=== PATIENT | female | born 1995 | race Caucasian/White ===

== ENCOUNTER 2017-02-27 16:11 | Emergency (ER) | payer SELFPAY ==
[2017-02-27 16:38] VITALS: BP 128/84
--- NOTE | 2017-02-27 16:47 | UC ---
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 - History of Current Complaint Chief Complaint: UCBackPain Stated Complaint: BACK INJURY Time Seen by Provider: 02/27/17 16:27 Hx Obtained From: Patient Hx Last Menstrual Period: unknown, on depo shot Onset/Duration: Sudden Onset Timing: Constant Severity Initially: Severe Severity Currently: Severe Pain Scale Used: 0-10 Numeric - 7 Character: Sharp Aggravating: Movement - Allergies/Home Medications Allergies/Adverse Reactions: Allergies Allergy/AdvReac Type Severity Reaction Status Date / Time No Known Allergies Allergy Verified 02/27/17 16:38 Home Medications: Home Medications medroxyPROGESTERone ACETATE* [DEPO-Provera*] 150 mg IM ONCE 02/27/17 [History Confirmed 02/27/17] PMH/Surg Hx/FS Hx/Imm Hx Previously Healthy: Yes - Surgical History Surgical History: None - Social History Alcohol Use: None Substance Use Type: None Smoking Status (MU): Heavy Every Day Tobacco Smoker Type: Cigarettes Amount Used/How Often: 1/2ppd - Immunization History Vaccination Up to Date: Yes Review of Systems Constitutional: Negative Skin: Negative Eyes: Negative ENT: Negative Respiratory: Negative Cardiovascular: Negative Gastrointestinal: Negative Genitourinary: Negative Motor: Negative Neurovascular: Negative Musculoskeletal: Myalgia, Other: - RIGHT LOWER BACK SPASM/PAIN Neurological: Negative Psychological: Negative All Other Systems Reviewed And Are Negative: Yes Physical Exam Triage Information Reviewed: Yes Vital Signs: Initial Vital Signs Temp 37.1 C 02/27/17 16:31 Pulse 96 02/27/17 16:31 Resp 16 02/27/17 16:31 BP 128/84 02/27/17 16:31 Pulse Ox 100 02/27/17 16:31 Eye Exam: Normal ENT Exam: Normal Dental Exam: Normal Neck exam: Normal Neck: Positive: 1 Respiratory Exam: Normal Cardiovascular Exam: Normal Abdominal Exam: Normal Musculoskeletal: Positive: Other: - RIGHT LOWER BACK SPASM Neurological Exam: Normal Psychological Exam: Normal Skin Exam: Normal Back Pain Course/Dx - Differential Dx/Diagnosis Provider Diagnoses: RIGHT LOWER BACK SPASM Discharge - Discharge Plan Condition: Stable Disposition: HOME Prescriptions: Meloxicam [Mobic] 7.5 mg PO BID PC #30 tab Methocarbamol TAB* [Robaxin 500 MG TAB*] 500 mg PO TID PRN #30 tab PRN Reason: Spasms Patient Education Materials: Low Back Strain (ED) Referrals: Michelet Umaña MD [Primary Care Provider] -
== END 2017-02-27 16:59 | disposition home or self-care (01) ==
LOC: UCCORT 16:11
DX: M62.830 Muscle spasm of back (principal); F17.210 Nicotine dependence, cigarettes, uncomplicated
CPT/HCPCS: 99212; G0463

== ENCOUNTER 2017-04-22 19:20 | Emergency (ER) | payer SELFPAY ==
[2017-04-22 20:00] VITALS: BP 113/80
[2017-04-22] MEDS ORDERED: Diazepam TAB(*) 5 MG PO ONE ×2 (20:34)
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
[2017-04-22] MEDS ORDERED: Ibuprofen TAB* 200 MG PO ONE (20:37)
[2017-04-22] MEDS ORDERED: Cyclobenzaprine TAB* 10 MG PO ONE (20:37)
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
== END 2017-04-22 21:40 | disposition home or self-care (01) ==
LOC: UCCORT 19:20
DX: S16.1XXA Strain of muscle, fascia and tendon at neck level, initial encounter (principal); V43.52XA Car driver injured in collision with other type car in traffic accident, initial encounter; Y93.89 Activity, other specified; Y92.410 Unspecified street and highway as the place of occurrence of the external cause; F17.210 Nicotine dependence, cigarettes, uncomplicated
CPT/HCPCS: 72125; 99212; A9270-GY; G0463

== ENCOUNTER 2018-05-31 09:05 | Emergency (ER) | payer BC ==
[2018-05-31 09:35] VITALS: BP 133/84
--- NOTE | 2018-05-31 10:00 | UC ---
UC General HPI - HPI Summary HPI Summary: uti this am - History of Current Complaint Chief Complaint: UCGU Stated Complaint: URINARY Time Seen by Provider: 05/31/18 09:49 Hx Obtained From: Patient Hx Last Menstrual Period: unknown, depo shot Onset/Duration: Gradual Onset Timing: Constant Pain Intensity: 0 Associated Signs & Symptoms: Positive: Dysuria. Negative: Abdominal Pain, Back Pain, Fever - Allergy/Home Medications Allergies/Adverse Reactions: Allergies Allergy/AdvReac Type Severity Reaction Status Date / Time No Known Allergies Allergy Verified 05/31/18 09:30 PMH/Surg Hx/FS Hx/Imm Hx - Additional Past Medical History Additional PMH: UTI's, pyelonephritis - Surgical History Surgical History: Yes Surgery Procedure, Year, and Place: tonsillectomy 08/2016 - Family History Known Family History: Positive: None - Social History Occupation: Employed Part-time, Student Alcohol Use: Occasionally Substance Use Type: None Smoking Status (MU): Heavy Every Day Tobacco Smoker Type: Cigarettes Amount Used/How Often: 1/2ppd - Immunization History Most Recent Influenza Vaccination: 02/2017 Vaccination Up to Date: Yes Review of Systems All Other Systems Reviewed And Are Negative: Yes Constitutional: Negative: Fever Skin: Positive: Negative Eyes: Positive: Negative ENT: Positive: Negative Respiratory: Positive: Negative Cardiovascular: Positive: Negative Gastrointestinal: Negative: Abdominal Pain Genitourinary: Positive: Dysuria, Frequency, Urgency Motor: Positive: Negative Neurovascular: Positive: Negative Musculoskeletal: Positive: Negative Neurological: Positive: Negative Psychological: Positive: Negative Is Patient Immunocompromised?: No Physical Exam Triage Information Reviewed: Yes Appearance: Well-Appearing Vital Signs: Initial Vital Signs Temp 97.5 F 05/31/18 09:31 Pulse 114 05/31/18 09:31 Resp 17 05/31/18 09:31 BP 133/84 05/31/18 09:31 Pulse Ox 97 05/31/18 09:31 Vital Signs Reviewed: Yes Eyes: Positive: Conjunctiva Inflamed ENT: Positive: Normal ENT inspection Neck: Positive: Supple, Nontender, No Lymphadenopathy Respiratory: Positive: Lungs clear, Normal breath sounds Cardiovascular: Positive: RRR, No Murmur Abdomen Description: Positive: Nontender, No Organomegaly, Soft. Negative: CVA Tenderness (R), CVA Tenderness (L), Distended, Guarding Bowel Sounds: Positive: Present Musculoskeletal: Positive: ROM Intact Neurological: Positive: Alert Psychological: Positive: Age Appropriate Behavior Skin Exam: Normal Diagnostics - Laboratory Diagnostic Studies Completed/Ordered: U/A= + FOR PROTEIN, BLOOD, LEUKOCYTES, BILIRUBIN AND KETONES WITH CULTURE PENDING. Course/Dx - Course Course Of Treatment: NON TOXIC, NO CONCERN FOR PYELONEPHRITIS - Differential Dx - Multi-Symptom Provider Diagnoses: UTI Discharge - Sign-Out/Discharge Documenting (check all that apply): Patient Departure All imaging exams completed and their final reports reviewed: No Studies - Discharge Plan Condition: Stable Disposition: HOME Prescriptions: Nitrofurantoin Monohyd/M-Cryst [Macrobid 100 mg Capsule] 100 mg PO BID 5 Days # 10 cap Patient Education Materials: Urinary Tract Infection in Women (DC) Referrals: Hilda Harden MD [Primary Care Provider] - 7 Days - Billing Disposition and Condition Condition: STABLE Disposition: Home - Attestation Statements Provider Attestation: Per institutional requirements, I have reviewed the chart, however, I was not consulted specifically or made aware of this patient by the midlevel provider. I did not personally evaluate, interact with , or disposition this patient.
== END 2018-05-31 10:13 | disposition home or self-care (01) ==
LOC: UCCORT 09:05
DX: N39.0 Urinary tract infection, site not specified (principal)
CPT/HCPCS: 81003; 87086; 99212; G0463

== ENCOUNTER 2018-11-06 17:40 | Emergency (ER) | payer BC ==
--- OUTSIDE RECORDS SUMMARY | 2018-11-06 18:12 | XMS REPORT | Continuity of Care Document ---
:1995 External Reference #:[id number] Author Name Kendra Tolentino PA Address [address] [address] Care Team Providers Name Role Phone Danette Botello CNM Care Team Information Mamma Logist Unavailable Hilda Harden MD Primary Care Physician Unavailable Payers Date Identification Numbers Payment Provider Subscriber Policy Number: [id number] [place] Nahomi Bruno PayID: [id number] [address] [address] [place] [address] Advance Directives Description No Information Available Problems Date Description Provider Status Onset: 06/26/2016 Hepatomegaly with splenomegaly, not Eladia Lucas DO Active elsewhere classified Onset: 06/26/2016 Hypertrophy of tonsils Eladia Lucas DO Active Onset: 07/24/2016 Liver function tests abnormal Eduardo Piper MD Active Onset: 07/24/2016 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 Onset: 10/23/2016 Biliary cirrhosis Eduardo Piper MD Active Onset: 12/01/2017 Vaginitis Danette Botello CNM Active Onset: 06/15/2018 Venereal disease screening Danette Botello CNM Active Onset: 06/15/2018 Gynecologic examination Danette Botello CNM Active Onset: 12/01/2017 Contraceptives Danette Botello CNM Active Family History Date Family Member(s) Observation Comments Father Diverticulitis Maternal Grandfather Diabetes Maternal Grandfather Hypertension Maternal Grandmother Hypertension Maternal Grandmother Cancer Maternal Grandmother Diabetes Maternal Grandmother Colon Cancer Social History Type Date Description Comments Sex Unknown Lives With Parents Home Environment Lives With Parents Work Status Unemployed Tobacco Use Start: Unknown Heavy tobacco smoker (more than 10 cigarettes/day) ETOH Use Denies alcohol use Recreational Drug Use Denies Drug Use Tobacco Use Start: Unknown Light tobacco smoker (10 or fewer cigarettes/day) Recreational Drug Use Former Drug User terry,cocaine,marij uana Smoking Status Reviewed: 10/16/18 Light tobacco smoker (10 or fewer cigarettes/day) Currently Active Patient is currently sexually active Age 1st Eustace 15 Years Old # Partners in a Lifetime 8 STD's No STD History Allergies, Adverse Reactions, Alerts Description No Known Drug Allergies Medications Medication Date Status Form Strength Qnty SIG Indications Ordering Provider Cephalexin 10/17/19 Active Tablets 500mg 20tab 1 by mouth L02.411 Fina, 19 s twice a MD Hilda day Omeprazole 10/17/[address] 20mg 30cap 1 by mouth R11.2 Fina, 19 s every day MD Hilda x 2 weeks Depo-Provera 06/15/20 Active Suspension 150mg/ml 1ml administer Z01.419 Ayan 18 1 LUANNE Samaniego milliliter s intramuscu larly every 12 weeks for control Metronidazole 06/21/20 Hx Tablets 500mg 14tab 1 tab by Ayan 18 - s mouth LUANNE Samaniego 10/17/19 twice a 19 day Zithromax 06/16/20 Hx Tablets 250mg 4tabs take 4 Ayan 18 - tablets by LUANNE Samaniego 10/17/19 mouth 19 once. Cleocin 12/02/19 Hx Cream 2% 80gm 1 N76.1 Adenike Botello - applicator LUANNE Samaniego 06/15/[address] of 18 vagina 2x a week at bedtime. Flagyl 09/17/19 Hx Tablets 500mg 14tab 1 tab by Z11.3 Ayan, 18 - s mouth LUANNE Samaniego 02/27/20 twice a 18 day Amoxicillin/Cl 09/09/19 Hx Tablets 875-125mg 20tab 1 tab by J01.90 Ayan avulanate 18 - s mouth LUANNE Samaniego Potassium 09/17/19 twice a 18 day Fluconazole 09/09/19 Hx Tablets 150mg 1tabs Take 1 J01.90 Ayan, 18 - tablet by LUANNE Samaniego 09/17/19 mouth one 18 time . Metronidazole 07/31/19 Hx Tablets 500mg 14tab 1 tab by N76.0 Ayan, 18 - s mouth CLAUDIA Samaniego 09/09/19 twice a 18 day Metronidazole 07/31/19 Hx Gel 1% 55gm Apply 1 N76.0 Angelinara 18 - applicatio LUANNE Samaniego 07/31/19 n 18 intravagin ally twice weekly Metronidazole 07/31/19 Hx Gel 0.75% 45gm 1 N76.0 Angelina 18 - applicator CLAUDIA Samaniego 09/09/19 intravagin 18 ally twice a week at bedtime Zithromax 04/28/20 Hx Packet 1gm 1pack 1 packet Z11.3 Ayan 17 - et once Danette [facility] Unknown Cephalexin 03/31/20 Hx Capsules 500mg 28cap take one Fina, 17 - s tab by MD Hilda Unknown mouth every 6 hours for seven days Ursodiol 10/24/19 Hx Tablets 500mg 180ta 2 tab by K74.3 Eduardo 17 - bs mouth MD Feliz Unknown every day every evening Metronidazole 08/30/19 Hx Tablets 500mg 14tab 1 tab by N76.0 Ayan, 17 - s mouth Danette [facility] Unknown twice a day Depo-Provera 08/30/19 Hx Suspension 150mg/ml 1unit 1 vial Z30.013 Ayan 17 - s Danette [facility] 06/15/20 18 Metronidazole 04/11/20 Hx Tablets 500mg 14tab 1 tab by Bran 16 - s mouth Ellyn, 06/26/20 twice a CNM 16 day Ortho 03/29/20 Hx Tablets 0.18/0.21 28tab 1 by mouth Fina, Tri-Cyclen 16 - 5/0.25 s every day MD Hilda (28) Unknown mg-35 mcg Iron Hx Tablets 325(65Fe) 1 by mouth Unknown 00 - mg every day Unknown Flexeril Hx Tablet 10mg 1 tab by Unknown 00 - mouth Unknown three times daily as needed Medications Administered in Office Medication Date Status Form Strength Qnty SIG Indications Ordering Provider Depomedroxyporgest 05/27 Administered Injection [facility] erone 150MG /2018 Nurse Depomedroxyporgest 02/26 Administered Injection Borra, erone 150MG /2017 LUANNE Samaniego Depomedroxyporgest 12/01 Administered Injection Borra, erone 150MG /2017 Danette CNM Theraputic Or 12/01 Administered Injection Borra, Danette, CNM Injection Depomedroxyporgest 09/09 Administered Injection Borra, erone 150MG /2017 Danette CNM Theraputic Or 09/09 Administered Injection Borra, Danette, CNM Injection Depomedroxyporgest 06/12 Administered Injection Borra, erone 150MG /2016 Danette, CNM Theraputic Or 06/12 Administered Injection Borra, Danette, CNLuz Injection Depomedroxyporgest 03/11 Administered Injection Borra, erone 150MG /2016 LUANNE Samaniego Depomedroxyporgest 09/30 Administered Injection Coleman, erone 150MG /2016 Lorena, CNM Immunizations CPT Code Status Date Vaccine Reaction Lot # [id number] Given 03/31/2017 Influenza Virus Vaccine Quadrivalent Iiv4 none [id number] [id number] Given 03/29/2016 Influenza Virus Vaccine Split Virus Use For Individual 3Yr Older Vital Signs Date Vital Result Comment 10/16/2018 8:44am BP Systolic Sitting Left Arm 118 mmHg BP Diastolic Sitting Left Arm 74 mmHg Body Temperature 98.0 F Heart Rate 99 /min Respiratory Rate 30 /min Height 71 inches 5'11" Weight 252.00 lb BMI (Body Mass Index) 35.1 kg/m2 BSA (Body Surface Area) 2.33 m2 [place] body weight in kilograms 70 kg O2 % BldC Oximetry 98 % 06/15/2018 2:10pm BP Systolic 112 mmHg BP Diastolic 60 mmHg Body Temperature 98.6 F Heart Rate 94 /min Respiratory Rate 16 /min Height 71 inches 5'11" Weight 246.00 lb BMI (Body Mass Index) 34.3 kg/m2 BSA (Body Surface Area) 2.30 m2 [place] body weight in kilograms 70 kg O2 % BldC Oximetry 97 % 02/26/2018 8:28am BP Systolic 117 mmHg BP Diastolic 87 mmHg Body Temperature 96.8 F Heart Rate 80 /min Respiratory Rate 18 /min Height 71 inches 5'11" Weight 237.00 lb BMI (Body Mass Index) 33.1 kg/m2 BSA (Body Surface Area) 2.27 m2 [place] body weight in kilograms 70 kg O2 % BldC Oximetry 98 % 12/01/2017 9:03am BP Systolic 107 mmHg BP Diastolic 74 mmHg Height 71 inches 5'11" [place] body weight in kilograms 70 kg 09/16/2017 1:52pm BP Systolic 122 mmHg BP Diastolic 86 mmHg Height 71 inches 5'11" Weight 245.50 lb BMI (Body Mass Index) 34.2 kg/m2 BSA (Body Surface Area) 2.30 m2 [place] body weight in kilograms 70 kg 09/09/2017 8:58am BP Systolic 124 mmHg BP Diastolic 86 mmHg Height 71 inches 5'11" Weight 249.25 lb BMI (Body Mass Index) 34.8 kg/m2 BSA (Body Surface Area) 2.32 m2 [place] body weight in kilograms 70 kg 07/29/2017 11:48am BP Systolic Sitting Left Arm 114 mmHg BP Diastolic Sitting Left Arm 72 mmHg Height 71 inches 5'11" Weight 243.50 lb BMI (Body Mass Index) 34.0 kg/m2 BSA (Body Surface Area) 2.29 m2 [place] body weight in kilograms 70 kg 06/12/2017 9:01am BP Systolic 120 mmHg BP Diastolic 82 mmHg Height 69.0 inches 5'9" Weight 240.00 lb BMI (Body Mass Index) 35.4 kg/m2 BSA (Body Surface Area) 2.23 m2 [place] body weight in kilograms 66 kg 04/28/2017 11:09am BP Systolic 124 mmHg BP Diastolic 82 mmHg Weight 235.38 lb 03/31/2017 3:37pm BP Systolic 117 mmHg BP Diastolic 74 mmHg Heart Rate 77 /min Respiratory Rate 16 /min Weight 239.38 lb O2 % BldC Oximetry 97 % 03/11/2017 8:59am BP Systolic 106 mmHg BP Diastolic 82 mmHg Weight 243.12 lb 12/17/2016 12:22pm BP Systolic 98 mmHg BP Diastolic 70 mmHg Height 71 inches 5'11" Weight 240.50 lb BMI (Body Mass Index) 33.5 kg/m2 BSA (Body Surface Area) 2.28 m2 [place] body weight in kilograms 70 kg 10/23/2016 8:24am BP Systolic Sitting Left Arm 114 mmHg BP Diastolic Sitting Left Arm 78 mmHg Heart Rate 78 /min Respiratory Rate 16 /min Height 71 inches 5'11" Weight 234.00 lb BMI (Body Mass Index) 32.6 kg/m2 BSA (Body Surface Area) 2.25 m2 [place] body weight in kilograms 70 kg 09/30/2016 10:40am Height 71 inches 5'11" Weight 233.00 lb BMI (Body Mass Index) 32.5 kg/m2 BSA (Body Surface Area) 2.25 m2 08/30/2016 1:20pm BP Systolic 104 mmHg BP Diastolic 78 mmHg Height 71 inches 5'11" Weight 227.00 lb BMI (Body Mass Index) 31.7 kg/m2 BSA (Body Surface Area) 2.23 m2 07/24/2016 2:41pm BP Systolic Sitting Left Arm 117 mmHg BP Diastolic Sitting Left Arm 72 mmHg Heart Rate 91 /min Respiratory Rate 16 /min Height 71 inches 5'11" Weight 225.00 lb BMI (Body Mass Index) 31.4 kg/m2 BSA (Body Surface Area) 2.22 m2 [place] body weight in kilograms 70 kg 07/09/2016 3:17pm BP Systolic 116 mmHg BP Diastolic 67 mmHg Body Temperature 98.3 F Heart Rate 88 /min Respiratory Rate 18 /min Weight 223.00 lb O2 % BldC Oximetry 98 % 06/26/2016 10:20am BP Systolic 113 mmHg BP Diastolic 71 mmHg Body Temperature 97.4 F Heart Rate 88 /min Respiratory Rate 20 /min Weight 213.00 lb O2 % BldC Oximetry 95 % 04/16/2016 10:51am BP Systolic 118 mmHg BP Diastolic 66 mmHg Height 68.5 inches 5'8.50" Weight 227.00 lb BMI (Body Mass Index) 34.0 kg/m2 BSA (Body Surface Area) 2.17 m2 04/08/2016 10:10am BP Systolic 122 mmHg BP Diastolic 78 mmHg Height 68.5 inches 5'8.50" Weight 224.12 lb BMI (Body Mass Index) 33.6 kg/m2 BSA (Body Surface Area) 2.16 m2 03/29/2016 2:40pm BP Systolic 115 mmHg BP Diastolic 80 mmHg Heart Rate 100 /min Height 68.5 inches 5'8.50" Weight 222.50 lb BMI (Body Mass Index) 33.3 kg/m2 BSA (Body Surface Area) 2.15 m2 [place] body weight in kilograms 65 kg Results Test Date Facility Test Result H/L Range Note Chlmaydia/ 06/15/2018 [facility] Chlamydia POSITIVE Abnormal Negative 1 GC/Trichom [address] trachomatis, [place] [address] PCR [phone] Neisseria gonorrhoeae, PCR Negative Negative 2 Trichomonas vaginalis PCR Negative Negative Genital Culture W/ 06/15/2018 [facility] Gram Stain NO WHITE BLOOD C [address] <SEE NOTE> [place] [address] [phone] Gram Stain GRAM STAIN INDIC <SEE NOTE> 4 Genital Culture GARDNERELLA VAGI <SEE NOTE> Abnormal 5 Quantity MODERATE HIV Screen 4TH 06/15/2018 [facility] HIV Screen 4th Non Reactive Non Reactive 6 Gen Reflex [address] [place] [address] wRfx [phone] Laboratory 06/15/2018 [facility] Hepatitis B Negative Negative 7 test finding [address] [place] [address] Antigen [phone] Hepatitis C Antibody 0.1 s/corat 0.0-0.9 8 Treponema Antibody [facility] Negative Negative Serum or plasma 06/15/2018 N2N/CCD Import Serum or plasma 0.1 0.0-0.9 hepatitis C virus hepatitis C antibody signal/ virus antibody signal/cutoff ratio by immunoassay Vaginal 06/15/2018 N2N/CCD Import Vaginal Results on cytopathology cytopathology File smear smear Urine Culture And 05/31/2018 [facility] Urine Culture SEE RESULT 9, 10 Sensitivities [phone] BELOW Poc Urinalysis 05/31/2018 [facility] Poc Glucose, Negative Negative [phone] Urine Poc Bilirubin, Urine 1+ Abnormal Negative Poc Ketone, Urine Trace Abnormal Negative Poc Specific [place], Urine >=1.030 N 1.010-1.030 Poc Blood, Urine Trace-intact Abnormal Negative Poc pH, Urine 5.5 N 5-9 Poc Protein, Urine 1+ Abnormal Negative Poc Urobilinogen, Urine 0.2 Negative Poc Nitrite, Urine Negative Negative Poc Leukocytes, Urine 1+ Abnormal Negative Poc Color, Urine Other Poc Clarity, Urine Cloudy 11 Affirm 09/16/2017 [facility] Trichomonas Negative [Negative] [address] vaginalis Panel [place], [place] [id number] [phone] Gardnerella vaginalis POSITIVE High [Negative] Sofia species Negative [Negative] 13 Laboratory test 09/16/2017 [facility] Hepatitis C < 0.1 0.0-0.[address] Antibody s/[place] [address] [phone] Hepatitis B Surface Antigen Negative Negative 15 Treponema Antibody [place] Negative Negative HIV Screen 09/16/2017 [facility] HIV Screen 4th Non Reactive Non Reactive 16 4TH Gen [address] [place] [address] [phone] Chlamydia/G 09/16/2017 [facility] Chlamydia Negative Negative C Franny [address] Trachomatis, [place] [address] Franny [phone] Neisseria Gonorrhoeae, Franny Negative Negative Please note: (SEE NOTE) 17 Specimen Type: Genital Affirm 07/31/2017 [facility] Trichomonas Negative [Negative] [address] [place] [address] [phone] Gardnerella vaginalis POSITIVE High [Negative] Sofia species Negative [Negative] 19 Serum or plasma 06/29/2017 N2N/CCD Import Serum or plasma 8.9 8.5-10.1 calcium calcium measurement measurement (mass/volume) (mass/volume) Serum or plasma 06/29/2017 N2N/CCD Import Serum or plasma 11 Low 15-37 aspartate aspartate aminotransferase aminotransferase measure measurement (enzymatic activity/volume) Serum or plasma 06/29/2017 N2N/CCD Import Serum or plasma 84 45-117 alkaline alkaline phosphatase phosphatase measurement ( measurement (enzymatic activity/volume) Serum or plasma 06/29/2017 N2N/CCD Import Serum or plasma 4.0 3.4-5.0 albumin albumin measurement measurement (mass/volume) (mass/volume) Serum carbon 06/29/2017 N2N/CCD Import Serum carbon 24 21-32 dioxide dioxide measurement measurement RDW RBC Auto-Rto 06/29/2017 N2N/CCD Import RDW RBC Auto-Rto 13.0 11.7- 14.4 RDW RBC Auto 06/29/2017 N2N/CCD Import RDW RBC Auto 38.5 3-47 Prot Ur 06/29/2017 N2N/CCD Import Prot Ur Negative Negative Strip.auto-mCnc Strip.auto-mCnc Potassium 06/29/2017 N2N/CCD Import Potassium 3.6 3.5-5.1 SerPl-sCnc SerPl-sCnc Nitrite Ur Ql 06/29/2017 N2N/CCD Import Nitrite Ur Ql Negative Negative Strip.auto Strip.auto Neutrophils/leuk 06/29/2017 N2N/CCD Import Neutrophils/leuk 73.0 High 40.4-72.8 NFr Bld Auto NFr Bld Auto Neutrophils # Bld 06/29/2017 N2N/CCD Import Neutrophils # Bld 8.33 High 1.8-7.0 Auto Auto Monocytes/leuk NFr 06/29/2017 N2N/CCD Import Monocytes/leuk NFr 10.5 4.3 -13.2 Bld Auto Bld Auto Lymphocytes/leuk 06/29/2017 N2N/CCD Import Lymphocytes/leuk 16.0 Low 20.0 -42.0 NFr Bld Auto NFr Bld Auto Leukocyte esterase 06/29/2017 N2N/CCD Import Leukocyte esterase Small High Negative Ur Ql Strip.auto Ur Ql Strip.auto Serum or plasma 06/29/2017 N2N/CCD Import Serum or plasma 0.8 0.6-1.3 creatinine creatinine measurement measurement (mass/volum (mass/volume) Serum or plasma 06/29/2017 N2N/CCD Import Serum or plasma 105 74-106 glucose glucose measurement measurement (mass/volume) (mass/volume) Serum or plasma 06/29/2017 N2N/CCD Import Serum or plasma 0.8 0.4-1.9 lactate lactate measurement measurement (moles/volume) (moles/volume) Serum or plasma 06/29/2017 N2N/CCD Import Serum or plasma 8.3 High 6.4- 8.2 protein protein measurement measurement (mass/volume) (mass/volume) Serum or plasma 06/29/2017 N2N/CCD Import Serum or plasma 0.3 0.2-1.0 total bilirubin total bilirubin measurement (mass/ measurement (mass/volume) Serum or plasma 06/29/2017 N2N/CCD Import Serum or plasma 8 7-18 urea nitrogen urea nitrogen measurement measurement (mass/vo (mass/volume) Serum sodium 06/29/2017 N2N/CCD Import Serum sodium 137 136-145 measurement measurement Unloinc 06/29/2017 N2N/CCD Import Unloinc See Note 20 Urine appearance 06/29/2017 N2N/CCD Import Urine appearance Clear Clear determination determination Urine glucose 06/29/2017 N2N/CCD Import Urine glucose Negative Negative measurement by measurement by automated test automated test strip strip (mass/volume) Urine hemoglobin 06/29/2017 N2N/CCD Import Urine hemoglobin Negative Negative detection by detection by automated test automated test strip strip Urine total 06/29/2017 N2N/CCD Import Urine total Negative Negative bilirubin bilirubin detection by detection by automated test automated test strip Urobilinogen Ur 06/29/2017 N2N/CCD Import Urobilinogen Ur 0.2 0.2-1.0 Strip-aCnc Strip-aCnc WBC # Bld Auto 06/29/2017 N2N/CCD Import WBC # Bld Auto 11.4 High 3.1- 10.7 pH Ur Strip.auto 06/29/2017 N2N/CCD Import pH Ur Strip.auto 6.5 6.5-7.5 Blood Culture 06/29/2017 [facility] Blood Culture NO GROWTH: 21, [address] Aerobic FINAL <SEE 22 [place] [address] NOTE> [phone] Blood Culture Anaerobic NO GROWTH: FINAL <SEE NOTE> 23 Lactic Acid 06/29/2017 [facility] Lactic Acid 0.8 mmol/L N 0.4-1.9 [address] [place], [place] [id number] [phone] Lab Reflex >2.0 for Sepsis? Y Ua RFX Micro & Culture 06/29/2017 [facility] Urine Color YELLOW Yellow II [address] [place], [place] [id number] [phone] Urine Clarity CLEAR Clear Urine Glucose - Dipstick NEGATIVE mg/dL Negative Urine Bilirubin - Dipstick NEGATIVE Negative Urine Ketone NEGATIVE mg/dL Negative Urine Specific [place] <=1.005 Low 1.010-1.030 Urine Blood NEGATIVE Negative Urine PH 6.5 N 6.5-7.5 Urine Protein - Dipstick NEGATIVE mg/dL Negative Urine Urobilinogen - Dipstick 0.2 E.U./dL N 0.2-1.0 Urine Nitrite - Dipstick NEGATIVE Negative Urine Leuk Esterase SMALL Abnormal Negative Urine RBC 0-2 rbc/hpf 0-2 Urine WBC 0-2 wbc/hpf 0-7 Urine Epithelial Cells VERY FEW /lpf None Seen Source: URINE, CLEAN CAT <SEE NOTE> 24 Comprehensive Metabolic 06/29/2017 [facility] Glucose 105 mg/dL N 74-[address] [place] [address] [phone] BUN 8 mg/dL N 7-18 Creatinine 0.8 mg/dL N 0.6-1.3 Glom Filtration Rate, Estimate >60 mL/min >60 If >60 mL/min >60 25 BUN/Creat 10.0 ratio Sodium 137 mmol/L N 136-145 Potassium 3.6 mmol/L N 3.5-5.1 Chloride 104 mmol/L N 98-107 Carbon Dioxide 24 mmol/L N 21-32 Anion Gap 9 mEq/L N 8-16 Calcium 8.9 mg/dL N 8.5-10.1 Total Protein 8.3 g/dL High 6.4-8.2 Albumin 4.0 g/dL N 3.4-5.0 Globulin 4.3 g/dL N 1.9-4.3 Alb/Glob 0.9 ratio Bilirubin,Total 0.3 mg/dL N 0.2-1.0 Sgot/Ast 11 U/L Low 15-37 26 SGPT/Alt 20 U/L N 12-78 Alkaline Phosphatase 84 U/L N 45-117 Laboratory 06/29/2017 [facility] HCG,Serum NEGATIVE (Negative) 27 test finding [address] (Qualitative) [place] [address] [phone] CBS 06/29/2017 [facility] White Blood 11.4 K/uL High 3.1-10.7 W/Automated [address] [place] [address] [phone] Red Blood Count 5.23 M/uL N 3.90-5.40 Hemoglobin 14.8 gm/dL N 11.6-15.8 Hematocrit 42.7 % N 36.0-46.1 Mean Cell Volume 81.6 fl N 80.9-99.0 Mean Corpuscular HGB 28.3 pg N 25.9-32.7 Mean Corpuscular HGB Conc 34.7 g/dL High 30.8-34.3 Platelet Count 237 K/uL N 155-360 Red Cell Distri Width SD 38.5 fl N 3-47 Red Cell Distri Width %CV 13.0 % N 11.7-14.4 Mean Platelet Volume 11.1 fL N 8.9-12.4 Neut% 73.0 % High 40.4-72.8 Lymph % 16.0 % Low 20.0-42.0 [place] % 10.5 % N 4.3-13.2 Eo% 0.3 % N 0.0-6.6 Bas% 0.2 % N 0.0-1.1 Neut# 8.33 K/uL High 1.8-7.0 Lymph # 1.83 K/uL N 1.0-4.0 [place] # 1.20 K/uL High 0.3-0.9 Eos # 0.03 K/uL N 0.0-0.5 Baso # 0.02 K/uL N 0.0-0.1 Slide Review 06/29/2017 [facility] Slide Review (SEE NOTE) [address] [place] [address] [phone] Blood Culture 06/29/2017 [facility] Blood Culture NO GROWTH: FINAL [address] Aerobic <SEE NOTE> [place] [address] [phone] Blood Culture Anaerobic NO GROWTH: FINAL <SEE NOTE> 30 Alt SerPl-cCnc 06/29/2017 N2N/CCD Import Alt SerPl-cCnc 20 12-78 Albumin/Glob 06/29/2017 N2N/CCD Import Albumin/Glob 0.9 SerPl SerPl Anion Gap 06/29/2017 N2N/CCD Import Anion Gap 9 8-16 SerPl-sCnc SerPl-sCnc Automated blood 06/29/2017 N2N/CCD Import Automated blood 0.02 0.0-0.1 basophil count basophil count (count/volume) (count/volume) Automated blood 06/29/2017 N2N/CCD Import Automated blood 0.03 0.0-0.5 eosinophil count eosinophil count Automated blood 06/29/2017 N2N/CCD Import Automated blood 42.7 36.0- 46.1 hematocrit hematocrit (volume fraction) (volume fraction) Automated blood 06/29/2017 N2N/CCD Import Automated blood 1.83 1.0-4.0 lymphocyte count lymphocyte count (number/volume) (number/volume) Ketones Ur 06/29/2017 N2N/CCD Import Ketones Ur Negative Negative Strip.auto-mCnc Strip.auto-mCnc Globulin Ser 06/29/2017 N2N/CCD Import Globulin Ser 4.3 1.9-4.3 Calc-mCnc Calc-mCnc Epithelial cells 06/29/2017 N2N/CCD Import Epithelial cells Very Few None Seen detection in detection in urine sediment by urine sediment li by light microscopy Eosinophil/leuk 06/29/2017 N2N/CCD Import Eosinophil/leuk 0.3 0.0-6.6 NFr Bld Auto NFr Bld Auto Color Ur 06/29/2017 N2N/CCD Import Color Ur Yellow Yellow Chloride 06/29/2017 N2N/CCD Import Chloride 104 98-107 SerPl-sCnc SerPl-sCnc Blood monocytes 06/29/2017 N2N/CCD Import Blood monocytes 1.20 High 0.3- 0.9 automated count automated count (number/volume) (number/volume) Blood hemoglobin 06/29/2017 N2N/CCD Import Blood hemoglobin 14.8 11.6- 15.8 measurement measurement (mass/volume) (mass/volume) Blood 06/29/2017 N2N/CCD Import Blood 5.23 3.90-5.40 erythrocytes erythrocytes automated count automated count (number/volume) (number/volume) Basophils/leuk 06/29/2017 N2N/CCD Import Basophils/leuk 0.2 0.0-1.1 NFr Bld Auto NFr Bld Auto BUN/Creat SerPl 06/29/2017 N2N/CCD Import BUN/Creat SerPl 10.0 Automated 06/29/2017 N2N/CCD Import Automated 81.6 80.9-99.0 erythrocyte mean erythrocyte mean corpuscular corpuscular volume volume Automated 06/29/2017 N2N/CCD Import Automated 34.7 High 30.8-34.3 erythrocyte mean erythrocyte mean corpuscular corpuscular hemoglobin hemoglobin concentration measurement (mass/volume) Automated 06/29/2017 N2N/CCD Import Automated 28.3 25.9-32.7 erythrocyte mean erythrocyte mean corpuscular corpuscular hemoglobin hemoglobin (mass per erythrocyte) Automated blood 06/29/2017 N2N/CCD Import Automated blood 11.1 8.9-12.4 platelet mean platelet mean volume volume measurement measurement Automated blood 06/29/2017 N2N/CCD Import Automated blood 237 155-360 platelet count platelet count Vaginal 06/12/2017 N2N/CCD Import Vaginal Results on cytopathology cytopathology File smear smear Serum or plasma 04/28/2017 N2N/CCD Import Serum or plasma Negative Negative hepatitis C virus hepatitis C Rna detection by virus Rna detection by probe and target amplification method Laboratory test 04/28/2017 [facility] Hepatitis B Negative Negative 31, finding [address] Surface Antigen 32 [place] [address] [phone] Treponema Antibody [facility] Negative Negative HCV Rna Franny 04/28/2017 [facility] Hepatitis C Negative Negative [address] [place] [place] [address] [phone] HIV Screen 04/28/2017 [facility] HIV Screen 4th Non Reactive Non Reactive 34 4TH Gen [address] [place] [address] wRfx [phone] Genital 04/28/2017 [facility] Gram Stain GRAM STAIN N 35 Culture W/ [address] INDIC <[place] [address] NOTE> [phone] Gram Stain MODERATE GR POS. <SEE NOTE> N 36 Gram Stain RARE GRAM NEGATI <SEE NOTE> N 37 Gram Stain RARE WHITE BLOOD <SEE NOTE> N 38 Genital Culture GENITAL ROXANNE Chlamydia/GC Franny 04/28/2017 [facility] Chlamydia Negative Negative [address] Trachomatis, [place] [address] [phone] Neisseria Gonorrhoeae, Franny Negative Negative Please note: (SEE NOTE) 39 Specimen Type: Genital PT W/Inr 10/10/2016 [facility] Protime 13.0 seconds N 12.0-14.[address] [place] [address] [phone] Inr 1.0 N 0.9-1.1 40 Anticoagulant Therapy? NO CBC W/Auto Diff & 10/10/2016 [facility] White Blood 10.0 K/uL N 3.1-10.[address] Count [place], [place] [address] [phone] Red Blood Count 5.20 M/uL N 3.90-5.40 Hemoglobin 14.1 gm/dL N 11.6-15.8 Hematocrit 42.2 % N 36.0-46.1 Mean Cell Volume 81.2 fl N 80.9-99.0 Mean Corpuscular HGB 27.1 pg N 25.9-32.7 Mean Corpuscular HGB Conc 33.4 g/dL N 30.8-34.3 Platelet Count 262 K/uL N 150-400 Red Cell Distri Width SD 40.6 fl N 3-47 Red Cell Distri Width %CV 13.8 % N 11.7-14.4 Mean Platelet Volume 10.7 fL N 8.9-12.4 Neut% 58.4 % N 40.4-72.8 Lymph % 31.0 % N 20.0-42.0 [place] % 9.4 % N 4.3-13.2 Eo% 1.0 % N 0.0-6.6 Bas% 0.2 % N 0.0-1.1 Neut# 5.82 K/uL N 1.8-7.0 Lymph # 3.09 K/uL N 1.0-4.0 [place] # 0.94 K/uL High 0.3-0.9 Eos # 0.10 K/uL N 0.0-0.5 Baso # 0.02 K/uL N 0.0-0.1 Anticoagulant Therapy? NO Act Partial 10/10/2016 [facility] Act Partial 35.6 seconds High 23.4-35.[address] [place] [place] [address] [phone] Anticoagulant Therapy? NO Affirm 08/30/2016 [facility] Trichomonas Negative [Negative] [address] [place] [address] [phone] Gardnerella vaginalis POSITIVE High [Negative] Sofia species Negative [Negative] Laboratory 08/12/2016 [facility] Mitochondrial 26.7 High 0.0-20.0 42 test finding [address] (M2) [place] [address] [phone] Actin (Smooth Muscle) Antibody 9 units N 0-19 43 Hep B Core AB Total Positive Abnormal Negative Celiac Disease 08/12/2016 [facility] Immunoglobulin A 249 mg/dL N 87-352 Comp AB Profile [address] [place] [address] [phone] Antigliadin Abs, IgG 5 units N 0-19 44 Antigliadin Abs, IgA 11 units N 0-19 45 Endomysial IgA Antibody Negative N Negative t-Transglutaminase IgA <2 U/mL N 0-3 46 t-Transglutaminase IgG 2 U/mL N 0-5 47 Laboratory 08/12/2016 [facility] Hepatitis A POSITIVE Abnormal Negative test [address] AB, [place] [address] [phone] Hepatitis B 08/12/2016 [facility] HBSAb Nonreactive N Nonreactive Surface AB [address] [place] [address] [phone] Hepatitis B Surface Antibody < 3.1 mIU/mL N <3.1 48 Laboratory 08/12/2016 [facility] Hepatitis B Nonreactive N Nonreactive 49 test finding [address] [place] [address] Antibody-IgM [phone] Itcdx-7-Ksvojbayjxy,Serum 149 mg/dL N 90-200 Ceruloplasmin 28.0 mg/dL N 19.0-39.0 Protein 08/12/2016 [facility] Protein,Total,Serum 7.4 g/dL N 6.0-8.5 Electro.,S [address] [place] [address] [phone] Albumin 3.7 g/dL N 2.9-4.4 Icvwn-8-Hpszlfsf 0.2 g/dL N 0.0-0.4 Kslaf-4-Bfjrhibo 0.8 g/dL N 0.4-1.0 Beta Globulin 1.2 g/dL N 0.7-1.3 Gamma Globulin 1.6 g/dL N 0.4-1.8 M-[place] Not Observed g/dL N Not Observed Globulin, Total 3.7 g/dL N 2.2-3.9 A/G Ratio 1.0 N 0.7-1.7 Please Note: (SEE NOTE) N 50 P E Interpretation, Serum (SEE NOTE) N 51 Laboratory 08/12/2016 [facility] Anti-Nuclear Positive Abnormal Negative test finding [address] Antibodies AU/[place] [address] Direct [phone] Antinuclear 08/12/2016 [facility] Antinuclear Positive . 52 Antibodies, [address] Antibodies, [place] [address] Ifa [phone] Speckled Pattern 1:160 High . 53 Note (SEE NOTE) N 54 [facility] W/Automated 08/06/2016 [facility] White Blood 9.4 K/uL N 3.1-10.7 [address] [place] [address] [phone] Red Blood Count 5.24 M/uL N 3.90-5.40 Hemoglobin 13.9 gm/dL N 11.6-15.8 Hematocrit 43.1 % N 36.0-46.1 Mean Cell Volume 82.3 fl N 80.9-99.0 Mean Corpuscular HGB 26.5 pg N 25.9-32.7 Mean Corpuscular HGB Conc 32.3 g/dL N 30.8-34.3 Platelet Count 221 K/uL N 155-360 Red Cell Distri Width SD 45.4 fl N 3-47 Red Cell Distri Width %CV 15.2 % High 11.7-14.4 Mean Platelet Volume 11.9 fL N 8.9-12.4 Neut% 64.1 % N 28.0-68.0 Lymph % 25.5 % N 20.0-42.0 [place] % 9.2 % N 4.3-13.2 Eo% 1.1 % N 0.0-6.6 Bas% 0.1 % N 0.0-1.1 Neut# 6.00 K/uL N 1.8-7.0 Lymph # 2.39 K/uL N 1.0-4.0 [place] # 0.86 K/uL N 0.3-0.9 Eos # 0.10 K/uL N 0.0-0.5 Baso # 0.01 K/uL N 0.0-0.1 [facility] W/Automated 06/26/2016 [facility] White Blood 12.9 K/uL High 3.1-10.7 [address] [place] [address] [phone] Red Blood Count 5.14 M/uL N 3.90-5.40 Hemoglobin 13.7 gm/dL N 11.6-15.8 Hematocrit 42.3 % N 36.0-46.1 Mean Cell Volume 82.3 fl N 80.9-99.0 Mean Corpuscular HGB 26.7 pg N 25.9-32.7 Mean Corpuscular HGB Conc 32.4 g/dL N 30.8-34.3 Platelet Count 245 K/uL N 155-360 Red Cell Distri Width SD 43.4 fl N 3-47 Red Cell Distri Width %CV 14.9 % High 11.7-14.4 Mean Platelet Volume 11.3 fL N 8.9-12.4 Neut% 74.1 % High 28.0-68.0 Lymph % 18.1 % N 17.0-46.1 [place] % 7.0 % N 4.3-13.2 Eo% 0.7 % N 0.0-6.6 Bas% 0.1 % N 0.0-1.1 Neut# 9.57 K/uL High 1.8-7.0 Lymph # 2.34 K/uL N 1.8-7.0 [place] # 0.91 K/uL High 0.3-0.9 Eos # 0.09 K/uL N 0.0-0.5 Baso # 0.01 K/uL N 0.0-0.1 Comprehensive Metabolic 06/26/2016 [facility] Glucose 78 mg/dL N 74-106 Panel [address] [place], [place] [address] [phone] BUN 9 mg/dL N 7-18 Creatinine 0.6 mg/dL N 0.6-1.3 Glom Filtration Rate, Estimate >60 mL/min N >60 If >60 mL/min N >60 57 BUN/Creat 15.0 ratio N Sodium 139 mmol/L N 136-145 Potassium 3.7 mmol/L N 3.5-5.1 Chloride 105 mmol/L N 98-107 Carbon Dioxide 26 mmol/L N 21-32 Anion Gap 8 mEq/L N 8-16 Calcium 8.7 mg/dL N 8.5-10.1 Total Protein 7.5 g/dL N 6.4-8.2 Albumin 3.4 g/dL N 3.4-5.0 Globulin 4.1 g/dL N 1.9-4.3 Alb/Glob 0.8 ratio N Bilirubin,Total 0.1 mg/dL Low 0.2-1.0 Sgot/Ast 24 U/L N 15-37 SGPT/Alt 26 U/L N 12-78 Alkaline Phosphatase 80 U/L N 45-117 Laboratory test 06/26/2016 [facility] Ebv Early 98.8 U/mL High 0.0-8.9 [address] Antigen AB, [place] [address] IgG [phone] Ebv Nuclear Antigen AB, Igg 40.2 U/mL High 0.0-17.9 59 Ebv AB Vca,Igg 209.0 U/mL High 0.0-17.9 60 Ebv AB Vca,Igm <36.0 U/mL N 0.0-35.9 61 Sedimentation Rate 7 mm/hr N 0-20 Iron-Tibc-%Sat 06/26/2016 [facility] Serum Iron 33 g/dL Low 50-[address] [place] [address] [phone] Total Iron Binding Capacity 380 g/dL N 250-450 Transferrin %Saturation 9 % Low 12-57 Laboratory test finding 06/26/2016 [facility] Ferritin 15 ng/mL N 8-[address] [place], [place] [address] [phone] LDH 199 U/L N 84-246 Immunoglobulins 06/26/2016 [facility] Immunoglobulin 1226 N 700-1600 A/G/M, QN, Ser [address] G,Quant,Serum mg/[place] [address] [phone] Immunoglobulin A 246 mg/dL N 87-352 Immunoglobulin M 165 mg/dL N 26-217 Slide Review 06/26/2016 [facility] Slide Review . N [address] [place] [address] [phone] CBS W/Automated 05/08/2016 [facility] White Blood 8.3 K/uL N 3.1-10.7 [address] [place] [address] [phone] Red Blood Count 5.15 M/uL N 3.90-5.40 Hemoglobin 14.0 gm/dL N 11.6-15.8 Hematocrit 42.7 % N 36.0-46.1 Mean Cell Volume 82.9 fl N 80.9-99.0 Mean Corpuscular HGB 27.2 pg N 25.9-32.7 Mean Corpuscular HGB Conc 32.8 g/dL N 30.8-34.3 Platelet Count 263 K/uL N 155-360 Red Cell Distri Width SD 43.6 fl N 3-47 Red Cell Distri Width %CV 14.7 % High 11.7-14.4 Mean Platelet Volume 11.3 fL N 8.9-12.4 Neut% 60.7 % N 28.0-68.0 Lymph % 28.7 % N 17.0-46.1 [place] % 9.4 % N 4.3-13.2 Eo% 1.1 % N 0.0-6.6 Bas% 0.1 % N 0.0-1.1 Neut# 5.05 K/uL N 1.8-7.0 Lymph # 2.39 K/uL N 1.8-7.0 [place] # 0.78 K/uL N 0.3-0.9 Eos # 0.09 K/uL N 0.0-0.5 Baso # 0.01 K/uL N 0.0-0.1 Comprehensive Metabolic 05/08/2016 [facility] Glucose 89 mg/dL N 74-106 Panel [address] [place], [place] [address] [phone] BUN 8 mg/dL N 7-18 Creatinine 0.7 mg/dL N 0.6-1.3 Glom Filtration Rate, Estimate >60 mL/min N >60 If >60 mL/min N >60 64 BUN/Creat 11.4 ratio N Sodium 141 mmol/L N 136-145 Potassium 4.0 mmol/L N 3.5-5.1 Chloride 105 mmol/L N 98-107 Carbon Dioxide 28 mmol/L N 21-32 Anion Gap 8 mEq/L N 8-16 Calcium 9.0 mg/dL N 8.5-10.1 Total Protein 7.6 g/dL N 6.4-8.2 Albumin 3.9 g/dL N 3.4-5.0 Globulin 3.7 g/dL N 1.9-4.3 Alb/Glob 1.1 ratio N Bilirubin,Total 0.4 mg/dL N 0.2-1.0 Sgot/Ast 13 U/L Low 15-37 65 SGPT/Alt 17 U/L N 12-78 Alkaline Phosphatase 74 U/L N 45-117 Hepatitis 05/08/2016 [facility] Hepatitis A Nonreactive N Nonreactive [address] [place] [address] [phone] Hepatitis B Surface Antigen Nonreactive N Nonreactive 67 Hepatitis B Core IgM Nonreactive N Nonreactive 68 Hepatitis C Antibody Nonreactive N Nonreactive Signal/Cutoff ratio < 0.02 N <0.80 69 Laboratory 05/08/2016 [facility] Antibody Nonreactive N Nonreactive 70 test finding [address] Detection-Hiv1/2 [place] [address] SCRN [phone] Genital 04/08/2016 [facility] Gram Stain GRAM STAIN N 71, Culture W/ [address] SUSPI <SEE 72 [place] [address] NOTE> [phone] Gram Stain MANY GRAM VARIAB <SEE NOTE> N 73 Gram Stain RARE GR POS. LEONEL <SEE NOTE> N 74 Gram Stain NO WHITE BLOOD C <SEE NOTE> N 75 Genital Culture GARDNERELLA VAGI <SEE NOTE> Abnormal 76 Quantity MANY N Chlamydia/GC Franny 04/08/2016 [facility] Chlamydia Negative N Negative [address] Trachomatis, Franny [place], [place] [id number] [phone] Neisseria Gonorrhoeae, Franny Negative N Negative Please note: (SEE NOTE) N 77 Cytopathology 04/08/2016 [facility] Cytopath C/V (SEE NOTE) N 78 Cervix/Vagina [address] [place] [place] [address] [phone] @[facility] Pat Id: [id number] @[facility] Req #: [id number] Cyto Source: Cervix/Endocx Cyto HPV: TP/ASCUS, rfx HP <SEE NOTE> 79 @LMP Date: 03/29/16 Urine Culture 03/29/2016 [facility] Urine Culture MIXED URETHRAL F 80, [address] <SEE NOTE> [place] [address] [phone] Quantity > 100,000 CFU/mL N 82 @[facility] Pat Id: [id number] @[facility] Req #: [id number] Miscellaneous 03/29/2016 [facility] @[facility] Pat Id: [id number] [place] [address] [phone] @[facility] Req #: [id number] Urinalysis With 03/29/2016 [facility] Urine Color YELLOW N Yellow Microscopic [address] [place] [address] [phone] Urine Clarity SL CLOUDY N Clear Urine Glucose - Dipstick NEGATIVE mg/dL N Negative Urine Bilirubin - Dipstick NEGATIVE N Negative Urine Ketone NEGATIVE mg/dL N Negative Urine Specific [place] 1.020 N 1.010-1.030 Urine Blood LARGE Abnormal Negative Urine PH 7.0 N 6.5-7.5 Urine Protein - Dipstick NEGATIVE mg/dL N Negative Urine Urobilinogen - Dipstick 0.2 E.U./dL N 0.2-1.0 Urine Nitrite - Dipstick NEGATIVE N Negative Urine Leuk Esterase SMALL Abnormal Negative Urine RBC 2-5 rbc/hpf N 0-2 Urine WBC 5-10 wbc/hpf N 0-7 Urine Epithelial Cells MANY /lpf N None Seen 83 Urine Bacteria MODERATE Abnormal None Seen Urine Amorph Sediment SMALL N Negative @EMR Pat Id: [id number] @[facility] Req #: [id number] 1 Z01.419 2 A negative result for either C. trachomatis and/or N. gonorrhoeae does not preclued an infection because results are dependent on adequate specimen collection, absence of inhibitors, and sufficient DNA to be detected. 3 NO WHITE BLOOD CELLS 4 GRAM STAIN INDICATES NORMAL GENITAL ROXANNE 5 GARDNERELLA VAGINALIS 6 Performed at: [address] [id number] Construction Project Assistant: Lia Gómez MD, Phone: [phone] 7 Performed at: [address] [id number] Construction Project Assistant: Isaura Person MD, Phone: [phone] Performed at: [address] [id number] Construction Project Assistant: Lia Gómez MD, Phone: [phone] INFCE Result Units: s/co ratio Negative: < 0.8 Indeterminate: 0.8 - 0.9 Positive: > 0.9 The CDC recommends that a positive HCV antibody result be followed up with a HCV Nucleic Acid Amplification test (735610). 9 [id number] 10 SEE RESULT BELOW Name: ALETA BRUNO : [address]: Prosper Barker MD Acct: [id number] Unit: [id number] AGE: 22 Location: [facility] Re05/31/18 SEX: F Status: DEP ER SPEC: [id number] HORTENCIA: 05/31/18-[address] [facility] [address]: Alycia RIVERS REQ: [id number] RECD: 05/31/180 STATUS: HENRIQUE REGALADO DR: Hilda Barker MD _ SOURCE: URINE SPDESC: ORDERED: Urine Culture COMMENTS: [id number] Procedure Result Reported Site Urine Culture Final 06/01/18- 1453 ML No growth of clinically significant organisms * ML - Main Lab . END OF REPORT DEPARTMENT OF PATHOLOGY, [address] [place] [address] Robbi Quintana M.D. Director [facility] # [id number] 11 Tag And Label Cutter: [id number] 12 Z11.3 13 Method: BD Affirm VPIII DNA Probe Assay 14 INFCE Result Units: s/co ratio Negative: < 0.8 Indeterminate: 0.8 - 0.9 Positive: > 0.9 The CDC recommends that a positive HCV antibody result be followed up with a HCV Nucleic Acid Amplification test (746065). 15 Performed at: [address] [id number] Construction Project Assistant: Homero Juarez MD, Phone: [phone] Performed at: [address] [id number] Construction Project Assistant: Lia Gómez MD, Phone: [phone] 16 Performed at: [address] [id number] Construction Project Assistant: Lia Gómez MD, Phone: [phone] 17 . A negative result for either C. trachomatis and/or N. gonorrhoeae does not preclued an infection because results are dependent on adequate specimen collection, absence of inhibitors, and sufficient DNA to be detected. 18 N76.0 19 Method: BD Affirm VPIII DNA Probe Assay 20 Instrument flagged sample for slide review. Less than 10% Bands seen, no other immature WBC's seen. RBC morphology essentially normal. Platelet estimate= Normal 21 LOWER BACK PAIN, FEVER 103, POSS KIDNEY INFECTION 22 NO GROWTH: FINAL REPORT 23 NO GROWTH: FINAL REPORT 24 URINE, CLEAN CATCH 25 Note: Persistent reduction for 3 months or more in an eGFR <60 mL/min/1.73 m2 defines CKD. Patients with eGFR values >/=60 mL/min/1.73 m2 may also have CKD if evidence of persistent proteinuria is present. The original MDRD equation for estimated GFR is not valid for patients less than 18 years of age. Additional information may be found at www.kdoqi.org. 26 Values below the stated reference ranges of AST and ALT can be seen in normal populations. Clinical correlation is suggested. 27 Method: raksulidel QuickVue One-Step Immunoassay 28 Instrument flagged sample for slide review. Less than 10% Bands seen, no other immature WBC's seen. RBC morphology essentially normal. Platelet estimate=NORMAL 29 NO GROWTH: FINAL REPORT 30 NO GROWTH: FINAL REPORT 31 Z11.3 32 Performed at: [address] [id number] Construction Project Assistant: Homero Juarez MD, Phone: [phone] Performed at: [address] [id number] Construction Project Assistant: Lia Gómez MD, Phone: [phone] 33 Negative: HCV RNA Not Detected Performed at: [address] [id number] Construction Project Assistant: Homero Juarez MD, Phone: [phone] 34 Performed at: [address] [id number] Construction Project Assistant: Lia Gómez MD, Phone: [phone] 35 GRAM STAIN INDICATES NORMAL GENITAL ROXANNE 36 MODERATE GR POS. BACILLI SUGGESTIVE OF LACTOBACILLUS SP. 37 RARE GRAM NEGATIVE BACILLI 38 RARE WHITE BLOOD CELLS 39 . A negative result for either C. trachomatis and/or N. gonorrhoeae does not preclued an infection because results are dependent on adequate specimen collection, absence of inhibitors, and sufficient DNA to be detected. 40 THERAPEUTIC INR RANGE: 2.0 - 3.0 DVT, Pulmonary embolus, prophylaxis against venous thrombosis or systemic embolization in high risk patients. 2.5 - 3.5 Mechanical heart valves 41 N76.0 42 Negative 0.0 - 20.0 Equivocal 20.1 - 24.9 Positive >24.9 Mitochondrial (M2) Antibodies are found in 90-96% of patients with primary biliary cirrhosis. 43 Negative 0 - 19 Weak positive 20 - 30 Moderate to strong positive >30 Actin Antibodies are found in 52-85% of patients with autoimmune hepatitis or chronic active hepatitis and in 22% of patients with primary biliary cirrhosis. 44 Negative 0 - 19 Weak Positive 20 - 30 Moderate to Strong Positive >30 45 Negative 0 - 19 Weak Positive 20 - 30 Moderate to Strong Positive >30 46 Negative 0 - 3 Weak Positive 4 - 10 Positive >10 Tissue Transglutaminase (tTG) has been identified as the endomysial antigen. Studies have demonstr- ated that endomysial IgA antibodies have over 99% specificity for gluten sensitive enteropathy. 47 Negative 0 - 5 Weak Positive 6 - 9 Positive >9 48 Values >10 mIU/ML considered IMMUNE 49 IgM anti-HBc not detected. Does not exclude the possibility of exposure to or infection with HBV. 50 Protein electrophoresis scan will follow via computer, mail, or port warden delivery. 51 The SPE pattern appears essentially unremarkable. Evidence of monoclonal protein is not apparent. 52 Negative <1:80 Borderline 1:80 Positive >1:80 53 Dense Fine Speckled pattern is noted. This pattern suggests the presence of DFS70 antibody which has a low prevalence in systemic autoimmune rheumatic diseases. 54 A positive ELDON result may occur in healthy individuals (low titer) or be associated with a variety of diseases. See interpretation chart which is not all inclusive: Pattern Antigen Detected Suggested Disease Association Homogeneous DNA(ds,ss), SLE - High titers Nucleosomes, Histones Drug-induced SLE Speckled Sm, FOOT GATHERER, SCL-70, SLE,MCTD,PSS (diffuse form), SS-A/SS-B Sjogrens Nucleolar SCL-70, PM-1/SCL High titers Scleroderma, PM/DM Centromere Centromere PSS (limited form) w/Crest syndrome variable Nuclear Dot [id number] Primary Biliary Cirrhosis Nuclear GP210, Primary Biliary Cirrhosis Membrane vishal A,B,C Performed at: [facility] [address] [id number] Construction Project Assistant: Lia Gómez MD, Phone: [phone] 55 R16.2 56 R16.1 V63.89 57 Note: Persistent reduction for 3 months or more in an eGFR <60 mL/min/1.73 m2 defines CKD. Patients with eGFR values >/=60 mL/min/1.73 m2 may also have CKD if evidence of persistent proteinuria is present. The original MDRD equation for estimated GFR is not valid for patients less than 18 years of age. Additional information may be found at www.kdoqi.org. 58 Hepatitis A, Hepatitis C and HIV antibodies may cross-react with this assay. Negative < 9.0 Equivocal 9.0 - 10.9 Positive >10.9 59 Negative <18.0 Equivocal 18.0 - 21.9 Positive >21.9 Performed at: [facility] [address] [id number] Construction Project Assistant: Lia Gómez MD, Phone: [phone] 60 Negative <18.0 Equivocal 18.0 - 21.9 Positive >21.9 61 Negative <36.0 Equivocal 36.0 - 43.9 Positive >43.9 62 Instrument flagged sample for slide review. Less than 10% Bands seen, no other immature WBC's seen. RBC morphology essentially normal. Platelet estimate=NORMAL 63 R16.2 64 Note: Persistent reduction for 3 months or more in an eGFR <60 mL/min/1.73 m2 defines CKD. Patients with eGFR values >/=60 mL/min/1.73 m2 may also have CKD if evidence of persistent proteinuria is present. The original MDRD equation for estimated GFR is not valid for patients less than 18 years of age. Additional information may be found at www.kdoqi.org. 65 Values below the stated reference ranges of AST and ALT can be seen in normal populations. Clinical correlation is suggested. 66 IgM antibodies to HAV not detected; does not exclude early acute or recovered HAV infection. 67 HBsAg not detected; does not exclude the possibility of exposure to or early acute infections with HBV. 68 IgM anti-HBc not detected. Does not exclude the possibility of exposure to or infection with HBV. 69 Antibodies to HCV not detected; does not exclude early acute HCV infection. 70 NOTE: A NON-REACTIVE RESULT INDICATES THAT HIV-1 AND HIV-2 ANTIBODIES HAVE NOT BEEN FOUND IN THIS PATIENT SPECIMEN. A NON-REACTIVE RESULT, HOWEVER, DOES NOT PRECLUDE PREVIOUS EXPOSURE OF INFECTION WITH HIV. * [place] STATE LAW PROHIBITS THE REDISCLOSURE OF THIS RESULT * * TO ANY UNAUTHORIZED REPUBLICAN. * 71 Z01.419 Z11.3 72 GRAM STAIN SUSPICIOUS FOR BACTERIAL VAGINOSIS 73 MANY GRAM VARIABLE COCCOBACILLI 74 RARE GR POS. BACILLI SUGGESTIVE OF LACTOBACILLUS SP. 75 NO WHITE BLOOD CELLS 76 GARDNERELLA VAGINALIS 77 A negative result for either C. trachomatis and/or N. gonorrhoeae does not preclued an infection because results are dependent on adequate specimen collection, absence of inhibitors, and sufficient DNA to be detected. A negative result for either C. trachomatis and/or N. gonorrhoeae does not preclued an infection because results are dependent on adequate specimen collection, absence of inhibitors, and sufficient DNA to be detected. 78 Hard copy of report to be sent by mail Report may be viewed in Clinical Review, or in PCI under Medical Record Forms 79 TP/ASCUS, rfx HPV 80 Z87.440 N39.0 81 MIXED URETHRAL ROXANNE 82 > 100,000 CFU/mL SPECIMEN IS A MIX OF GRAM NEGATIVE AND GRAM POSITIVE ORGANISMS. UNABLE TO DETERMINE WHICH ORGANISMS ARE FROM THE URINARY TRACT OR THE RESULT OF SKIN VAGINAL PERIANAL CONTAMINATION DURING COLLECTION. SUGGEST REPEAT SPECIMEN IF CLINICALLY INDICATED. 83 POSSIBLE UROGENITAL CONTAMINATION. Procedures Date Code Description Status 05/27/2018 33926 Theraputic Or Diagnostic Injection Completed 02/26/2018 95881 Theraputic Or Diagnostic Injection Completed 12/01/2017 11338 Theraputic Or Diagnostic Injection Completed 09/09/2017 36060 Theraputic Or Diagnostic Injection Completed 06/12/2017 22946 Theraputic Or Diagnostic Injection Completed 03/11/2017 18963 Theraputic Or Diagnostic Injection Completed 12/17/2016 93740 Theraputic Or Diagnostic Injection Completed 09/30/2016 12092 Theraputic Or Diagnostic Injection Completed Encounters Type Date Location Provider Dx Diagnosis Office Visit 10/16/2018 Primary Care Kendra Tolentino L02.411 Cutaneous abscess 8:45a Office H., PA of right axilla R11.2 Nausea with vomiting, unspecified Office Visit 06/15/2018 2:00p [facility] Danette Botello, 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 of [facility]miss Office Visit 09/09/2017 9:00a [facility] Danette Botello, Z30.[address] [facility]ptive J01.90 Acute sinusitis, unspecified Z30.42 Encounter for surveillance of injectable contraceptive Office Visit 07/31/2017 11:30a [facility] Danette Botello, N76.0 Acute vaginitis [facility] Office Visit 04/28/2017 11:00a [facility] Danette Botello, Z11.[address] [facility] w sexl mode of transmiss Office Visit 03/31/2017 3:40p Primary Care Fina, L02.229 Furuncle of trunk, Office MD Hilda unspecified Z23 Encounter for immunization K74.3 Primary biliary cirrhosis Office Visit 10/23/2016 8:30a CHERYL Piper MD K74.3 Primary biliary cirrhosis R16.2 Hepatomegaly with splenomegaly, not elsewhere classified Office Visit 08/30/2016 1:30p [facility] Danette Botello, N76.0 Acute vaginitis [facility] Z30.013 Encounter for initial prescription of injectable contracep Office Visit 07/24/2016 2:30p CHERYL Piper MD R16.2 Hepatomegaly with splenomegaly, not elsewhere classified 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 Office Visit 07/09/2016 3:00p Oncology Office Lance R16.2 Hepatomegaly with Eladia, DO splenomegaly, not elsewhere classified J35.1 Hypertrophy of tonsils Office Visit 06/26/2016 10:30a Oncology Office Lance R16.2 Hepatomegaly with Eladia, DO splenomegaly, not elsewhere classified J35.1 Hypertrophy of tonsils Office Visit 04/16/2016 10:45a [facility] Abhilash Danette Botello [facility] R30.0 Dysuria Main Plan of Treatment 10/16/2018 - Kendra Tolentino, [id number] Cutaneous abscess of right axillaNew Medication:Cephalexin 500 mg - 1 by mouth twice a dayComments:No evidence of definitive lymph node. I suspect this is an abscess. Will treat with antibiotics.Warmcompresses to area,Avoid wearing underwire braFollow up: Follow-up as atztueH99.2 Nausea with vomiting, unspecifiedNew Medication: Omeprazole 20 mg - 1 by mouth every day x 2 weeksComments:Nausea with intermittent vomiting.No abdominal pains.Trial use of Omeprazole. Remain on meds for next 2 weeks. If sx persist, remain on meds for 30 days total.If persistent sx, call for follow-up appointment and further work-up
[2018-11-06 18:20] VITALS: BP 106/78
--- NOTE | 2018-11-06 18:28 | UC ---
Complaint Female HPI - HPI Summary HPI Summary: Pt c/o pain and firm "mass" in rectal area. Pt is concerned that she has a hemorrhoid. - History Of Current Complaint Chief Complaint: UCGeneralIllness Stated Complaint: HEMORRHOID Time Seen by Provider: 11/06/18 18:11 Hx Obtained From: Patient Hx Last Menstrual Period: ON DEPO INJ ?: No Onset/Duration: Gradual Onset, Lasting Days, Still Present Timing: Constant Severity Initially: Mild Severity Currently: Moderate Pain Intensity: 10 Character: Dull, Burning Aggravating Factor(s): Other - sitting, BM Alleviating Factor(s): Position Associated Signs And Symptoms: Positive: Genital Swelling - Risk Factors Ectopic Risk Factor: Negative Ovarian Torsion Risk Factor: Reproductive Age - Allergies/Home Medications Allergies/Adverse Reactions: Allergies Allergy/AdvReac Type Severity Reaction Status Date / Time No Known Allergies Allergy Verified 11/06/18 18:14 PMH/Surg Hx/FS Hx/Imm Hx Previously Healthy: Yes - Surgical History Surgical History: Yes Surgery Procedure, Year, and Place: tonsillectomy 08/2016 - Family History Known Family History: Positive: Cardiac Disease - Social History Occupation: Employed Full-time Lives: With Family Alcohol Use: None Substance Use Type: None Smoking Status (MU): Heavy Every Day Tobacco Smoker Type: Cigarettes Amount Used/How Often: 3/4 PPD Length of Time of Smoking/Using Tobacco: 2 YEARS Have You Smoked in the Last Year: Yes - Immunization History Most Recent Influenza Vaccination: 02/2017 Vaccination Up to Date: Yes Review of Systems All Other Systems Reviewed And Are Negative: Yes Constitutional: Positive: Negative Skin: Positive: Negative Eyes: Positive: Negative ENT: Positive: Negative Respiratory: Positive: Negative Cardiovascular: Positive: Negative Gastrointestinal: Positive: Other - pain at anus Genitourinary: Positive: Other - painful mass at anus Motor: Positive: Negative Neurovascular: Positive: Negative Musculoskeletal: Positive: Negative Neurological: Positive: Negative Psychological: Positive: Negative Is Patient Immunocompromised?: No Physical Exam Triage Information Reviewed: Yes Appearance: Pain Distress Vital Signs: Initial Vital Signs Temp 97.1 F 11/06/18 18:15 Pulse 108 11/06/18 18:15 Resp 16 11/06/18 18:15 BP 106/78 11/06/18 18:15 Pulse Ox 99 11/06/18 18:15 Vital Signs Reviewed: Yes Eye Exam: Normal ENT Exam: Normal Dental Exam: Normal Neck exam: Normal Respiratory: Positive: Chest non-tender Cardiovascular Exam: Normal Abdominal Exam: Normal Pelvic Exam: Positive: Mass - mild erythematous, painful mass at 7-8 o;'clock position of anus. Musculoskeletal Exam: Normal Neurological Exam: Normal Psychological Exam: Normal Skin Exam: Normal Complaint Female Dx - Differential Dx/Diagnosis Differential Diagnosis/HQI/PQRI: Bartholin Cyst, Other - helorrhoid Provider Diagnosis: Abscess of anal and rectal regions Discharge - Sign-Out/Discharge Documenting (check all that apply): Patient Departure All imaging exams completed and their final reports reviewed: No Studies - Discharge Plan Condition: Stable Disposition: HOME Prescriptions: Sulfamethox/Trimethoprim DS* [Bactrim DS 800/160 TAB*] 1 tab PO Q12H #14 tab Patient Education Materials: Abscess (ED), Sitz Bath (DC) Forms: *Work Release Referrals: Hilda Harden MD [Primary Care Provider] - If Needed - Billing Disposition and Condition Condition: STABLE Disposition: Home
== END 2018-11-06 18:51 | disposition home or self-care (01) ==
LOC: UCCORT 17:40
DX: K61.2 Anorectal abscess (principal); F17.210 Nicotine dependence, cigarettes, uncomplicated
CPT/HCPCS: 99212; G0463